=== PATIENT | male | born 1970 | race Caucasian/White ===

== ENCOUNTER 2017-09-13 09:42 | Day surgery (SDC) | payer OTHER ==
[2017-09-12 14:26] LABS: CLARITY,URINE Clear (Clear); COLOR,URINE Yellow (Yellow); GLUCOSE, URINE Negative (Neg); KETONES,URINE 15 mg/dl (Neg); LEUKOCYTE ESTERASE ,URINE Negative (Neg); NITRITES, URINE Negative (Neg); OCCULT BLOOD,URINE Negative (Neg); PROTEIN,URINE Negative (Neg)
[2017-09-12 14:31] LABS: UA COLLECTION TYPE NON-SPECIFIED
[2017-09-13] VITALS (11 sets, daily range): BP systolic 115–149; BP diastolic 66–100
[~2017-09-13] VITALS: Ht 180.3 cm; Wt 67.0 kg
[~2017-09-13 09:42] MED LIST: HYDR-565 PO; LISI-642 PO; PANT-47 PO; ceFAZolin inj. 3,000 MG in normal saline 100ml IV soln 100 ML IV ONE; ceFOXitin 2 GM ADDvantage bag 100 ML IV ONE; famotidine 20mg tablet PO ONE; ringers solution, lacted 1,000 ML IV SCH
[2017-09-13] MEDS ORDERED: rocuronium 10mg/ml inj IV ONE (13:00)
[2017-09-13] MEDS ORDERED: sevoflurane 250ml liquid IH ONE (13:00)
[2017-09-13] MEDS ORDERED: fentaNYL/PF 50MCG/1 ML 2ML syringe ONE (13:11)
[2017-09-13] MEDS ORDERED: midazolam 2 mg/2 ml injection ONE (13:11)
[2017-09-13] MEDS ORDERED: ceFAZolin 1000mg inj ONE (13:24)
[2017-09-13] MEDS ORDERED: BUPIVAcaine/PF 2.5 mg/ml (0.25%) 30ml vial ONE (13:25)
[2017-09-13] MEDS ORDERED: LIDOcaine 2% (20mg/ml) 5ml vial ONE (13:34)
[2017-09-13] MEDS ORDERED: neostigmine methylsulfate 1 MG/ML 10ml vial ONE (14:23)
[2017-09-13] MEDS ORDERED: glycopyrrolate 0.2mg/ml inj ONE (14:23)
[2017-09-13] MEDS ORDERED: propofol inj 20 ML IV ONE (14:23)
[2017-09-13] MEDS ORDERED: meperidine/PF 25mg/ml syringe ONE (14:35)
[2017-09-13] MEDS ORDERED: ringers solution, lacted 1,000 ML IV SCH (14:36)
[2017-09-13] MEDS ORDERED: acetaminophen 1,000mg/100ml IV 100 ML IV PRN (14:40)
[2017-09-13] MEDS ORDERED: proCHLORperazine 10 MG/2 ml inj IV PRN (14:40)
[2017-09-13] MEDS ORDERED: hydrALAZINE 20mg/ml inj. IV PRN (14:40)
[2017-09-13] MEDS ORDERED: ondansetron/PF 4mg/2ml inj IV PRN (14:40)
[2017-09-13] MEDS ORDERED: labetalol 5mg/ml 20ml inj. IV PRN (14:40)
[2017-09-13] MEDS ORDERED: morphine 2 MG/ML inj. syringe IV PRN ×2 (14:40)
[2017-09-13] MEDS ORDERED: meperidine/PF 25mg/ml syringe IV PRN (14:40)
[2017-09-13] MEDS ORDERED: meperidine/PF 25mg/ml syringe IV ONE (14:40)
[2017-09-13] MEDS: meperidine/PF 25mg/ml syringe IV PRN ×2 (14:52→15:01)
[2017-09-13] MEDS ORDERED: morphine 5 MG/ML injection IV PRN ×2 (14:54→14:55)
[2017-09-13] MEDS ORDERED: morphine 8mg/ml inj. syringe IV PRN ×2 (15:04→15:05)
[2017-09-13] MEDS ORDERED: HYDROmorphone 1 mg/ml syringe IV PRN ×2 (15:05)
== END 2017-09-13 15:56 | disposition home or self-care (01) ==
LOC: PAS 09:42
PROVIDERS: ATTEND Surgery
DX: C78.6 Secondary malignant neoplasm of retroperitoneum and peritoneum (principal); C80.1 Malignant (primary) neoplasm, unspecified
CPT/HCPCS: 49321; 49329; 81003; 93005; A6255; J0694; J1170; J2001; J2175; J2250; J2704; J2710; J3010; J3490; J7120; A7000; J0690; J7030

== ENCOUNTER 2017-09-16 06:35 | Emergency (ER) | payer OTHER ==
[~2017-09-16] VITALS: Ht 180.3 cm; Wt 59.4 kg
[~2017-09-16 06:35] MED LIST changes: -ceFAZolin inj. 3,000 MG in normal saline 100ml IV soln 100 ML IV ONE; -ceFOXitin 2 GM ADDvantage bag 100 ML IV ONE; -famotidine 20mg tablet PO ONE; -ringers solution, lacted 1,000 ML IV SCH
[2017-09-16 07:08] LABS: BASOPHILS % (AUTO) 0.1 % (0-1); EOSINOPHILS # (AUTO) 0.1 X10'3 (0-0.9); HEMATOCRIT 46.1 % (42.0-52.0); HEMOGLOBIN 15.2 g/dl (14.0-17.9); LYMPHOCYTES # (AUTO) 0.4 X10'3 (1.1-4.8); LYMPHOCYTES % (AUTO) 5.3 % (21-51); MEAN CORPUSCULAR HEMOGLOBIN 31.5 PG (27.0-31.0); MEAN CORPUSCULAR VOLUME 95.4 FL (78-98); MEAN PLATELET VOLUME 7.1 FL (7.4-10.4); MONOCYTES # (AUTO) 0.7 X10'3 (0-0.9); MONOCYTES % (AUTO) 10.1 % (2-12); NEUTROPHILS # (AUTO) 6.1 X10'3 (1.8-7.7); NEUTROPHILS % (AUTO) 82.5 % (42-75); PLATELET COUNT 465 X10'3 (140-440); RED BLOOD COUNT 4.83 X10'6 (4.70-6.10); WHITE BLOOD COUNT 7.4 X10'3 (4.5-11.0)
[2017-09-16 07:16] LABS: ALBUMIN 2.5 G/DL (3.4-5.0); ANION GAP 11 (8-16); BLOOD UREA NITROGEN 12 MG/DL (7-18); CHLORIDE 89 MMOL/L (99-107); GLUCOSE 151 MG/DL (70-104); POTASSIUM 4.4 MMOL/L (3.5-5.1); SODIUM 128 MMOL/L (135-145); eGFR 79 ML/MIN
[2017-09-16 07:19] LABS: INR 1.1 INR; PARTIAL THROMBOPLASTIN TIME 34 SECONDS (22-32); PROTHROMBIN TIME 11.4 SECONDS (9.0-12.0)
[2017-09-16] MEDS ORDERED: LIDOcaine 1.5% w/epinephrine 1:200,000 5ml ampul IJ ONE ×2 (07:45→08:10)
[2017-09-16 08:54] VITALS: BP 136/99
== END 2017-09-16 08:56 | disposition home or self-care (01) ==
LOC: ER 06:36
DX: K91.841 Postprocedural hemorrhage of a digestive system organ or structure following other procedure (principal); E87.1 Hypo-osmolality and hyponatremia; Z79.899 Other long term (current) drug therapy; Y84.8 Other medical procedures as the cause of abnormal reaction of the patient, or of later complication, without mention of misadventure at the time of the procedure
CPT/HCPCS: 36415; 80048; 85025; 85610; 85730; 99284; A6449; J3490

== ENCOUNTER 2017-10-18 07:34 | Day surgery (SDC) | payer OTHER ==
[2017-10-18] VITALS (10 sets, daily range): BP systolic 110–120; BP diastolic 77–83
[~2017-10-18] VITALS: Ht 180.3 cm; Wt 58.2 kg
[2017-10-18] MEDS ORDERED: POLY17PO10 PO (08:04)
[2017-10-18] MEDS ORDERED: normal saline 1000ml 1,000 ML IV SCH (08:30)
[2017-10-18] MEDS ORDERED: albumin (human) 25% 100 ML IV solution IV PRN (08:45)
== END 2017-10-18 10:30 | disposition home or self-care (01) ==
LOC: SSTAY O 07:34
PROVIDERS: ATTEND Radiology Diagnostic Radiology
DX: R18.8 Other ascites (principal); I10 Essential (primary) hypertension; Z87.891 Personal history of nicotine dependence; Z85.038 Personal history of other malignant neoplasm of large intestine; Z98.890 Other specified postprocedural states; Z79.899 Other long term (current) drug therapy
CPT/HCPCS: 49083; A6257; J7030; P9047